=== PATIENT | male | born 1985 | race Caucasian/White ===

== ENCOUNTER 2020-10-02 11:52 | Outpatient (REF) | payer BC, SELFPAY | END 2020-10-02 11:53 | disposition home or self-care (01) | LOC: HO.LAB 11:52 | PROVIDERS: Visit Provider Internal Medicine | DX: Z20.828 Contact with and (suspected) exposure to other viral communicable diseases (principal) | CPT/HCPCS: C9803; U0003 ==

== ENCOUNTER 2020-10-13 16:51 | Outpatient (REF) | payer BC, SELFPAY | END 2020-10-13 16:52 | disposition home or self-care (01) | LOC: HO.LAB 16:51 | PROVIDERS: Visit Provider Internal Medicine | DX: Z20.822 Contact with and (suspected) exposure to COVID-19 (principal) | CPT/HCPCS: 36415; C9803; U0003 ==

== ENCOUNTER 2022-03-25 15:33 | Emergency (ER) | payer OTHER, SELFPAY ==
--- NOTE | ~2022-03-25 | XR_ITS ---
EXAMINATION: XR ANKLE, LEFT CLINICAL INFORMATION: Swelling and pain COMPARISON: None TECHNIQUE: AP, lateral, and mortise views of the left ankle. FINDINGS: There is mild lateral malleolar soft tissue swelling. No visible acute fracture, dislocation or subluxation seen. No bony erosive changes. XR/XR ankle LT min 3V IMPRESSION: Mild soft tissue swelling lateral malleolus suggestive of ligamentous injury. No visible acute fracture or dislocation seen
[2022-03-25 16:23] VITALS: BP 126/75; PULSE 89; RESP 18; TEMP 36.6; O2SAT 98; BMI 20.7
--- NOTE | 2022-03-25 16:30 | PC.NURSE ---
pt transferred to w/c. pt given tylenol and an icepack
[2022-03-25] MEDS: Acetaminophen 325 MG TABLET 975 MG PO (16:31)
--- NOTE | 2022-03-25 17:07 | ED_ITS ---
HPI - Extremity Injury (Lower) General Chief Complaint: Extremity Injury, Lower Stated Complaint: slip at work Time Seen by Provider: 03/25/22 17:07 Source: patient Mode of arrival: ambulatory Limitations: no limitations History of Present Illness HPI Narrative: 36-year-old male who works for a past [employer] company, was outside sprain pesticide on the with breasts, when he stepped back, and slipped on the grass a nd injured his left ankle. Patient did not strike his head, no loss of consciousness. No numbness and tingling. Left ankle is painful on the lateral side, it hurts to bear weight. Patient has never had an ankle injury before, no ankle surgeries Related Data Previous Rx's Medication Instructions Recorded naproxen 500 mg tablet 500 mg PO BID 10 days #20 tabs 03/25/22 Allergies Allergy/AdvReac Type Severity Reaction Status Date / Time No Known Allergies Allergy Unverified 06/19/20 19:19 Review of Systems Constitutional: Constitutional: Denies body ache(s), Denies chills, Denies fatigue, Denies fever(s), Denies malaise and Denies weakness Eyes: Eyes: Denies diplopia Cardiovascular: Cardiovascular: Denies chest pain, Denies syncope, Denies leg edema, Denies lightheadedness, Denies Loss of Consciousness, Denies palpitations and Denies dyspnea Respiratory: Respiratory: Denies chest congestion, Denies cough and Denies dyspnea Gastrointestinal: Gastrointestinal: Denies abdominal pain, Denies hematochezia, Denies constipation, Denies diarrhea, Denies nausea and Denies vomiting Musculoskeletal: Musculoskeletal: Reports arthralgias, Reports joint swelling, Denies numbness and Denies tingling Neurologic: Denies confusion, Denies syncope, Denies numbness, Denies tingling and Denies weakness Psychiatric: Psychiatric: Denies anxiety, Denies confusion and Denies depression Endocrine: Endocrine: Denies fatigue and Denies palpitations PMFSH Social History Social History Advance Directives: No Advance Directives Information Provided: No Physical Exam Vital Signs: Vital Signs: Last Vital Signs Temp 97.9 F 03/25/22 16:23 Pulse 89 03/25/22 16:23 Resp 18 03/25/22 16:23 BP 126/75 03/25/22 16:23 Pulse Ox 98 03/25/22 16:23 O2 Del Method 03/25/22 16:23 BMI result Body Mass Index 20.7 Const: General: No confusion Nutritional Appearance: well nourished Orientation/consciousness: No confusion Limitations: no limitations Eyes: Conjunctivae: conjunctivae normal Pupils: Equal, round and reactive pupils present EOM: EOMs intact bilaterally Neck: Neck: Yes full ROM, Yes no lymphadenopathy and Yes supple Resp: Effort & Inspection: normal respiratory effort and able to speak in complete sentences Auscultation: clear to auscultation bilaterally, no crackles, no rales, no rhonchi and no wheezes Cardio: Rate: regular rate Rhythm: regular rhythm Heart sounds: S1 normal heart sound present and S2 normal heart sound present GI: Inspection: Yes normal to inspection Palpation (GI): Soft to palpation, nontender, no guarding and not rigid Percussion: Yes normal to percussion Auscultation: normal bowel sounds Skin: General skin exam: no rashes or lesions noted Neuro: General: No confusion Cranial nerves: Yes Equal, round and reactive pupils present Extrem: Left lower extremity: normal capillary refill and ankle Details: tenderness Location: of the lateral malleolus and of the anterior talofibular ligament, swelling Details: laterally, pitting edema and abnormal ROM Details: pain with active ROM Details: with dorsiflexion, with inversion and with eversion; no warmth; no cyanosis and no edema Psych: Appearance: grossly normal Affect: normal affect Attitude: cooperative Thought process: Normal thought process present Course Course Course Narrative: 36-year-old male presents with left ankle pain after slipping on grass at work. On exam, patient has intact left lower extremity pulses, sensation, and DTRs. No knee tenderness to palpate, no head of the fibula pain Patient has swelling over her is lateral ankle, has pain with active dorsiflexion Patient has had Tylenol, getting x-ray Reevaluation(s) Reevaluation #1: FINDINGS: There is mild lateral malleolar soft tissue swelling. No visible acute fracture, dislocation or subluxation seen. No bony erosive changes.? XR/XR ankle LT min 3V IMPRESSION: Mild soft tissue swelling lateral malleolus suggestive of ligamentous injury. No visible acute fracture or dislocation seen Patient could not tolerate boot due to pain. Provided crutches and ankle stirrup splint. Counseled patient to rest, ice, compress, and elevate ankle. Prescribed naproxen, follow-up with Orthopedics, patient on light duty until he is released by orthopedics to regular duty Discharge Plan Discharge Clinical Impression: Ankle sprain and strain Patient Disposition: Home, Self-Care Instructions: Ankle Sprain (ED), Crutch Instructions (ED), Ankle Stirrup Splint (ED), R.I.C.E. Treatment (ED) Additional Instructions: Please rest, ice, and elevate your ankle. Do not weightbear and use the crutches until you are seen by orthopedics. Please take naproxen, Xochitl and call Orthopedics at the following number if you have not heard from them by tomorrow afternoon for follow-up appointment [phone] Please return to the emergency room if you have any new or concerning symptoms Prescriptions: New naproxen 500 mg tablet 500 mg PO BID 10 Days Qty: 20 0RF Referrals: Pedro Dunne MD [Physician] - Stand Alone Forms: Work/School Release
== END 2022-03-25 19:22 | disposition home or self-care (01) ==
PROVIDERS: Emergency Provider Emergency Medicine Emergency Medical Services
DX: S93.402A Sprain of unspecified ligament of left ankle, initial encounter (principal); S96.912A Strain of unspecified muscle and tendon at ankle and foot level, left foot, initial encounter; W01.0XXA Fall on same level from slipping, tripping and stumbling without subsequent striking against object, initial encounter; Y93.9 Activity, unspecified; Y92.9 Unspecified place or not applicable; Y99.0 Civilian activity done for income or pay
CPT/HCPCS: 73610; 99283

== ENCOUNTER → 2022-04-06 10:09 | Outpatient (BNVA) | payer OTHER, SELFPAY | PROVIDERS: Visit Provider Physician Assistant | DX: S93.402A Sprain of unspecified ligament of left ankle, initial encounter (principal) | CPT/HCPCS: 99202 ==

== ENCOUNTER 2022-05-18 08:00 | Outpatient (RCR) | payer OTHER, SELFPAY ==
--- NOTE | 2022-04-14 14:16 | MHC.PT.EP ---
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 Pt is deemed an appropriate candidate to receive skilled PT in order to address his physical limitations to improve his functional ability. Frequency and Duration: The patient will be seen 2 x / wk x 6 wks. Short Term Goals: Initiate HEP. Ambulates w/o ankle brace. Pain with ambulation at most 1/10; initial: 3/10. Shoemaking Cutter Goals: with HEP. Improve L ankle EV MMT by at least 1 MMT grade; initial: 4-/5 and painful. Pt will report able to walk 1 mile without difficulty; initial: moderate difficulty. Pt will be able to negotiate a fl of stairs without difficulty or compensation; initial: moderate difficulty. Treatment Plan: Modalities to reduce pain, spasms and effusion. Manual therapy to restore motion and function. Therapeutic exercise to improve strength and flexibility. Neuromuscular re-education for posture and balance. Therapeutic activities to return to functional activities of daily living. Electronically signed by: Jagdish Houston PT. Please sign and return to therapist. Thank you for your referral.
== END 2022-06-15 14:48 | disposition home or self-care (01) ==
LOC: HO.PTWFD 08:00
PROVIDERS: Visit Provider Physician Assistant
DX: S93.402A Sprain of unspecified ligament of left ankle, initial encounter (principal)
CPT/HCPCS: 97110; 97140; 97161; 97530

== ENCOUNTER → 2022-05-19 09:15 | Outpatient (BNVA) | payer OTHER, SELFPAY | PROVIDERS: Visit Provider Physician Assistant | DX: S93.402A Sprain of unspecified ligament of left ankle, initial encounter (principal) | CPT/HCPCS: 99212 ==